=== PATIENT | male | born 1980 | race American Indian/Alaskan Native ===

== ENCOUNTER 2020-09-24 00:19 | Emergency (ER) | payer SELFPAY ==
--- NOTE | 2020-09-24 06:36 | XRay Report ---
LEFT WRIST 3 VIEW(S) LEFT HAND 3 VIEWS INDICATION / CLINICAL INFORMATION: L arm injury with left wrist and hand pain COMPARISON: None available. FINDINGS: BONES / JOINT(S): Mildly comminuted, transverse fracture of the distal left radius with extension to the distal radial articular surface. Minimally displaced fracture of the ulnar styloid process. No ca rpal bone or metacarpal fracture. SOFT TISSUES: Moderate soft tissue swelling on the dorsum of the wrist and hand. ADDITIONAL FINDINGS: None. IMPRESSION: 1. Distal left radius fracture. Signer Name: Magda Braswell MD Signed: 09/24/2020 6:31 AM Workstation Name: [id number]
--- NOTE | 2020-09-24 06:37 | XRay Report ---
LEFT SHOULDER 3 VIEW(S) INDICATION / CLINICAL INFORMATION: L arm injury with shoulder pain COMPARISON: None available. FINDINGS: BONES / JOINT(S): No acute fracture or subluxation. Mild AC joint degenerative arthrosis. SOFT TISSUES: No significant abnormality. ADDITIONAL FINDINGS: None. Signer Name: Magda Braswell MD Signed: 09/24/2020 6:32 AM Workstation Name: [email or web address]
--- NOTE | 2020-09-24 06:56 | XRay Report ---
LEFT ELBOW 2 VIEW(S) INDICATION / CLINICAL INFORMATION: L arm injury' COMPARISON: None available. FINDINGS: Only 2 lateral views are provided. No AP view. BONES / JOINT(S): No acute fracture or subluxation. No significant arthritis. No definite joint effus ion. SOFT TISSUES: No significant abnormality. ADDITIONAL FINDINGS: None. Signer Name: Magda Braswell MD Signed: 09/24/2020 6:52 AM Workstation Name: [id number]
[2020-09-24] MEDS ORDERED: HYDROmorphone 1 MG/1 ML INJ IV ONE (09:33)
[2020-09-24] MEDS ORDERED: ONDANSETRON 4 MG/2 ML INJ IV ONE (09:33)
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
[2020-09-24 11:41] VITALS: BP 157/79
== END 2020-09-24 12:59 | disposition home or self-care (01) ==
LOC: ED 00:19
DX: S52.502A Unspecified fracture of the lower end of left radius, initial encounter for closed fracture (principal); S40.012A Contusion of left shoulder, initial encounter; J45.909 Unspecified asthma, uncomplicated; F17.200 Nicotine dependence, unspecified, uncomplicated; F12.10 Cannabis abuse, uncomplicated; Y08.89XA Assault by other specified means, initial encounter; Y93.89 Activity, other specified; Y92.89 Other specified places as the place of occurrence of the external cause; Y99.8 Other external cause status
CPT/HCPCS: 29125; 73030; 73070; 73110; 73130; 96374; 96375; 99284; J1170; J2405